=== PATIENT | male | born 1930 | race Caucasian/White ===

== ENCOUNTER 2016-05-16 08:48 | Emergency (ER) | payer OTHER, MEDICARE ==
[~2016-05-16] VITALS: Ht 179.1 cm; Wt 75.8 kg
[~2016-05-16 08:48] MED LIST: ASPEC81 PO; AVD5 PO; BIOTCAP2 PO; BUDE180I INH; CALC200T PO; CHOL400T5 PO; DIAZ2TAB PO; DICL-201 PO; DOXY100C76 PO; FLNIN NAE; METH4PAK4 PO; PSYL55.43 PO; SRVDIN60 INH; TERA1CAP63 PO; THEO400T PO; [UNRECOGNIZED DRUG - CODE] PO
[2016-05-16] MEDS ORDERED: SODIUM CHLORIDE 0.9% 250ML 250 ML IV STA (09:02)
[2016-05-16] MEDS ORDERED: SODIUM CHLORIDE 0.9% 1000ML 1,000 ML IV STA (09:02)
[2016-05-16 09:03] VITALS: TEMP 36.8; O2SAT 98; Ht 179.1 cm; Wt 75.8 kg
--- NOTE | 2016-05-16 09:09 | EMERGENCY ROOM VISIT NOTE ---
History Report prepared by Scribe: Chloe Vuong Under the Supervision of: Dr. Cristela Odell M.D. First contact with patient: 08:53 Chief Complaint: SYNCOPE (NEAR SYNCOPE) Stated Complaint: FALL History of Present Illness The patient is an 85 year old male who presents to the Emergency Room with complaints of an episode of near syncope that occurred prior to arrival. He was brought to the ED via EMS. He reports he began to feel dizzy shortly after getting up this morning, so his called an ambulance and told him not to move. He denies any current shortness of breath or headache. He denies any recent illnesses or injuries. He does not think he hit his head at all during the episode. The patient does admit to pain in the back of his neck that is worsened by movement. His last bowel movement was this morning and normal. Source of History: patient Onset: this morning Position: other (global) Timing: resolved Associated Symptoms: + neck pain, No LOC, No SOB, No headache Review of Systems See HPI for pertinent positives & negatives. A total of 10 systems reviewed and were otherwise negative. 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 (6) Incarcerated femoral hernia (7) Spinal stenosis of lumbar region Family History FH: lung cancer MOTHER FH: myocardial infarction FATHER Social History Smoking Status: Never Smoker Drug Use: none Marital Status: Housing Status: lives with family, lives with significant other Occupation Status: retired Current/Historical Medications Scheduled Aspirin (Aspirin), 1 TAB PO HS Biotin (Biotin 5000), 1 CAP PO QAM Calcium Carbonate-Vitamin D (Oscal 500/200 D-3), 1 TAB PO QAM Cholecalciferol (Vitamin D), 2 TAB PO QAM Dutasteride (Dutasteride), 1 CAP PO HS Terazosin Hcl (Hytrin), 10 MG PO HS Miscellaneous Medications Albuterol Sulfate (Proair Respiclick), 1-2 PUFFS INH Allergies Coded Allergies: Ciprofloxacin (Verified Allergy, Unknown, unknown, 05/16/16) Physical Exam Vital Signs Date Time Temp Pulse Resp B/P Pulse Ox O2 Delivery O2 Flow Rate FiO2 05/16/16 15:12 74 20 94/55 93 05/16/16 14:12 56 18 100/58 97 Room Air 05/16/16 12:11 59 20 115/67 92 Room Air 05/16/16 10:49 57 18 127/75 96 Room Air 05/16/16 10:41 54 05/16/16 10:01 63 18 123/63 95 Room Air 05/16/16 09:16 60 102/56 68 97/45 72 95/54 05/16/16 09:03 36.8 84 20 111/58 98 Room Air 05/16/16 09:03 98 Room Air Physical Exam Vital signs reviewed. General: Elderly, well-appearing 85 year old male, in no significant distress. HEENT: No scleral icterus, PERRLA, neck supple. Atraumatic. Cardiovascular: Regular rate and rhythm, no extra sounds. Pulmonary: Clear to auscultation bilaterally, normal work of breathing. Abdomen: Soft, nontender, nondistended, positive bowel sounds. Musculoskeletal: Erythema to bilateral knees, mild abrasion to left knee, no peripheral edema. Neurologic: Patient awake alert and oriented x 3, full strength in all 4 extremities. Cranial nerves 2 through 12 grossly intact. Cerebellar exam is intact. Skin: Warm, dry, no rash Medical Decision & Procedures ER Provider Diagnostic Interpretation: This X-Ray was reviewed and interpreted by myself and the radiologist. CHEST ONE VIEW PORTABLE IMPRESSION: No acute cardiopulmonary findings. Electronically signed by: Rivera Palmer M.D. 05/16/2016 9:[address] scan was reviewed and interpreted by the radiologist and reviewed by myself. CT OF THE HEAD WITHOUT CONTRAST IMPRESSION: No acute intracranial findings. Electronically signed by: Rivera Palmer M.D. 05/16/2016 9:51 AM Laboratory Results 05/16/16 08:45 Red Blood Count 4.56, Mean Corpuscular Volume 91.2, Mean Corpuscular Hemoglobin 30.7, Mean Corpuscular Hemoglobin Concent 33.7, Mean Platelet Volume 9.3, Neutrophils (%) (Auto) 74.1, Lymphocytes (%) (Auto) 16.7, Monocytes (%) (Auto) 6.8, Eosinophils (%) (Auto) 1.8, Basophils (%) (Auto) 0.4, Neutrophils # (Auto) 7.20, Lymphocytes # (Auto) 1.62, Monocytes # (Auto) 0.66, Eosinophils # (Auto) 0.17, Basophils # (Auto) 0.04 05/16/16 08:45 Test 05/16/16 08:45 05/16/16 09:14 05/16/16 12:25 White Blood Count 9.71 K/uL (4.8-10.8) Red Blood Count 4.56 M/uL (4.7-6.1) Hemoglobin 14.0 g/dL (14.0-18.0) Hematocrit 41.6 % (42-52) Mean Corpuscular Volume 91.2 fL (80-100) Mean Corpuscular Hemoglobin 30.7 pg (25-34) Mean Corpuscular Hemoglobin Concent 33.7 g/dl (32-36) Platelet Count 184 K/uL (130-400) Mean Platelet Volume 9.3 fL (7.4-10.4) Neutrophils (%) (Auto) 74.1 % Lymphocytes (%) (Auto) 16.7 % Monocytes (%) (Auto) 6.8 % Eosinophils (%) (Auto) 1.8 % Basophils (%) (Auto) 0.4 % Neutrophils # (Auto) 7.20 K/uL (1.4-6.5) Lymphocytes # (Auto) 1.62 K/uL (1.2-3.4) Monocytes # (Auto) 0.66 K/uL (0.11-0.59) Eosinophils # (Auto) 0.17 K/uL (0-0.5) Basophils # (Auto) 0.04 K/uL (0-0.2) RDW Standard Deviation 47.4 fL (36.4-46.3) RDW Coefficient of Variation 14.1 % (11.5-14.5) Immature Granulocyte % (Auto) 0.2 % Immature Granulocyte # (Auto) 0.02 K/uL (0.00-0.02) Anion Gap 8.0 mmol/L (3-11) Est Creatinine Clear Calc Drug Dose 59.3 ml/min Estimated GFR () 86.4 Estimated GFR (Non- 74.5 BUN/Creatinine Ratio 16.7 (10-20) Calcium Level 8.6 mg/dl (8.5-10.1) Magnesium Level 2.2 mg/dl (1.8-2.4) Total Bilirubin 0.6 mg/dl (0.2-1) Direct Bilirubin 0.1 mg/dl (0-0.2) Aspartate Amino Transf (AST/SGOT) 20 U/L (15-37) Alanine Aminotransferase (ALT/SGPT) 20 U/L (12-78) Alkaline Phosphatase 62 U/L (45-117) Total Creatine Kinase 138 U/L (39-308) Creatine Kinase MB 3.9 ng/ml (0.5-3.6) Creatine Kinase MB Ratio 2.8 (0-3.0) Total Protein 6.2 gm/dl (6.4-8.2) Albumin 3.4 gm/dl (3.4-5.0) Bedside Troponin I 0.000 ng/ml (0-0.045) Urine Color YELLOW Urine Appearance CLEAR (CLEAR) Urine pH 7.5 (4.5-7.5) Urine Specific [place] 1.017 (1.000-1.030) Urine Protein NEG (NEG) Urine Glucose (UA) NEG (NEG) Urine Ketones TRACE (NEG) Urine Occult Blood NEG (NEG) Urine Nitrite NEG (NEG) Urine Bilirubin NEG (NEG) Urine Urobilinogen NEG (NEG) Urine Leukocyte Esterase NEG (NEG) Laboratory results per my review. Medications Administered Medications (Trade) Dose Ordered Sig/Low Route Start Time Stop Time Status Last Admin Dose Admin Sodium Chloride 250 ml @ 999 mls/hr Q16M STAT IV 05/16/16 09:02 05/16/16 09:17 DC 05/16/16 09:56 999 MLS/HR Sodium Chloride (Nss 1000ml) 1,000 ml @ 125 mls/hr Q8H STAT IV 05/16/16 09:02 05/16/16 15:27 DC 05/16/16 09:55 125 MLS/HR Meclizine HCl (Antivert Tab) 25 mg NOW STAT PO 05/16/16 11:07 05/16/16 11:09 DC 05/16/16 11:23 25 MG ECG Indication: syncope Rate (beats per minute): 67 Rhythm: sinus rhythm Findings: LAFB, PVC, prolonged QT (QTC is 464 milliseconds) ED Course 09: Past medical records reviewed. The patient was evaluated in room B7. A complete history and physical examination was performed. 0902: NSS 1000 ml @ 125 mls/hr IV, NSS 250 ml @ 999 mls/hr IV. 1105: Nursing informed me the patient was able to walk with a walker. He is still feeling dizzy so I will administer more medication. 1107: Meclizine 25 mg PO. 1421: I reevaluated the patient. He is feeling better. I discussed his results and discharge instructions and he verbalized complete understanding and agreement. Medical Decision DDx: Etiologies such as vasovagal event, infection, hypoglycemia, electrolyte abnormalities, cardiac sources, intracerebral event, toxicologic, neurologic, as well as others were entertained. This patient was evaluated and appeared to be in no significant distress. IV access was obtained and laboratory work was drawn. The patient was placed on the cardiac cath rn and found to be in a sinus rhythm. Patient's cardiac enzymes are negative, laboratory work is unrevealing. Patient does not appear to be orthostatic however does have a mildly hypotensive blood pressure upon sitting and standing. His baseline blood pressure was approximately 100 systolic on arrival. The patient had significant improvement in his blood pressure with gentle IV hydration. His BUN and creatinine are normal. He did complain of some "spinning" planned in a trial however was steady with a walker. He was given meclizine 25 mg orally with good relief. Head CT was performed and is negative. Chest x-ray is negative. He was able to tolerate a meal tray. The patient has been taking 10 mg of Hytrin daily for prostatic hypertrophy. His states she has been thinking he should discontinue this medication due to his recurrent dizziness. I offered to prescribe a lower dose however he felt more comfortable discontinuing the medication until he is reevaluated by his primary care physician this week. The patient was discharged to the care of his and told to return to the ER immediately for worsening of symptoms or any medical concerns. Impression Primary Impression: Hypotension Additional Impressions: Adverse reaction to drug Dizziness Scribe Attestation The scribe's documentation has been prepared under my direction and personally reviewed by me in its entirety. I confirm that the note above accurately reflects all work, treatment, procedures, and medical decision making performed by me. Departure Information Dispostion Home / Self-Care Referrals Aldo Chavez M.D. (PCP) Patient Instructions My [facility] Additional Instructions Diagnosis: Hypotension, dizziness Please discontinue your Hytrin. Drink plenty of clear fluids. Use caution when changing position. Follow-up with your physician this week for reevaluation. Return to the ER for worsening of symptoms or any medical concerns. Problem Qualifiers
[2016-05-16 09:12] LABS: BASO % 0.4 %; BASO ABS # 0.04 K/uL (0-0.2); COMPLETE YES; EOS % 1.8 %; HEMATOCRIT 41.6 % (42-52); IG% 0.2 %; LYMPH % 16.7 %; LYMPH ABS # 1.62 K/uL (1.2-3.4); MEAN CELL VOLUME 91.2 fL (80-100); MEAN CORPUSCULAR HEMOGLOBIN 30.7 pg (25-34); MEAN CORPUSCULAR HGB CONC 33.7 g/dl (32-36); MEAN PLATELET VOLUME 9.3 fL (7.4-10.4); MONO % 6.8 %; NEUT % 74.1 %; PLATELET COUNT 184 K/uL (130-400); RED BLOOD COUNT 4.56 M/uL (4.7-6.1); WHITE BLOOD COUNT 9.71 K/uL (4.8-10.8)
[2016-05-16 09:25] LABS: BUN/CREATININE RATIO 16.7 (10-20); CALCIUM 8.6 mg/dl (8.5-10.1); CREATININE 0.92 mg/dl (0.60-1.40); MAGNESIUM 2.2 mg/dl (1.8-2.4); POTASSIUM 4.1 mmol/L (3.5-5.1)
--- NOTE | 2016-05-16 09:26 | DIAGNOSTIC IMAGING REPORT ---
CHEST ONE VIEW PORTABLE CLINICAL HISTORY: Weakness. Dizziness. COMPARISON STUDY: Chest radiograph November 29, 2014. FINDINGS: Lung volumes are normal. There is no consolidation. There is no evidence of pulmonary edema. Cardiomediastinal silhouette is stable. Mild left basilar opacity favors atelectasis. IMPRESSION: No acute cardiopulmonary findings. Electronically signed by: Rivera Palmer M.D. 05/16/2016 9:24 AM Dictated Date/Time: 05/16/2016 9:19 AM
[2016-05-16 09:29] LABS: CKMB/CK RATIO 2.8 (0-3.0)
--- NOTE | 2016-05-16 09:52 | DIAGNOSTIC IMAGING REPORT ---
CT OF THE HEAD WITHOUT CONTRAST CLINICAL HISTORY: Dizzy. Weakness. COMPARISON STUDY: MRI of the brain October 10, 2014. CT DOSE: 614.27 mGy.cm TECHNIQUE: Helical axial images of the head were obtained without IV contrast. Automated exposure control was utilized for the study. FINDINGS: No acute intracranial hemorrhage, midline shift or mass effect is present. Ventricular system is stable. Basilar cisterns are patent. There are no extra-axial collections. Mild white matter hypodensity suggests small vessel disease. There are no findings to suggest acute dural sinus thrombosis or acute territorial infarct. There is no calvarial fracture. A left maxillary sinus mucous retention cyst is noted. There is no fluid within the mastoid air cells. IMPRESSION: No acute intracranial findings. Electronically signed by: Rivera Palmer M.D. 05/16/2016 9:51 AM Dictated Date/Time: 05/16/2016 9:48 AM
[2016-05-16] MEDS ORDERED: ALBU18002 INH (10:43)
[2016-05-16] MEDS ORDERED: DUTA1CAP3 PO (10:43)
[2016-05-16] MEDS ORDERED: ASPI1TAB83 PO (10:43)
[2016-05-16] MEDS ORDERED: MECLIZINE HCL 25 MG TAB PO STA (11:07)
[2016-05-16 12:43] LABS: URINE APPEARANCE CLEAR (CLEAR); URINE BILIRUBIN NEG (NEG); URINE COLOR YELLOW; URINE NITRITE NEG (NEG); URINE PH 7.5 (4.5-7.5); URINE SPECIFIC GRAVITY 1.017 (1.000-1.030); UROBILINOGEN NEG (NEG); ZZUR CULT IF INDIC CLEAN CATCH NO
[2016-05-16 12:45] LABS: MANUAL MICROSCOPIC REQUIRED? NO; REVIEW REQ? NO
[2016-05-16 15:12] VITALS: BP 94/55; PULSE 74; O2SAT 93
[2016-09-17] MEDS ORDERED: PSYL48.59 PO (14:29)
[2016-09-17] MEDS ORDERED: HYT/2 PO (14:29)
[2016-09-17] MEDS ORDERED: DUTA0.5C PO (14:29)
[2016-10-13] MEDS ORDERED: DIFL0.0519 (12:26)
[2016-10-13] MEDS ORDERED: BROM0.07 (12:26)
[2016-10-13] MEDS ORDERED: GENT0.3S6 OP (12:26)
== END 2016-05-16 15:05 | disposition home or self-care (01) ==
LOC: EDBD 08:48 → C.EDB 08:49
DX: I95.9 Hypotension, unspecified (principal); T44.6X5A Adverse effect of alpha-adrenoreceptor antagonists, initial encounter; R42 Dizziness and giddiness; N40.0 Benign prostatic hyperplasia without lower urinary tract symptoms; J45.909 Unspecified asthma, uncomplicated; F41.9 Anxiety disorder, unspecified; M48.06 Spinal stenosis, lumbar region; Z98.890 Other specified postprocedural states; Z79.82 Long term (current) use of aspirin; Z79.899 Other long term (current) drug therapy; Z88.2 Allergy status to sulfonamides; Z82.49 Family history of ischemic heart disease and other diseases of the circulatory system

== ENCOUNTER → 2016-10-13 | Day surgery (SDC) | payer OTHER, MEDICARE ==
[2016-09-17 14:33] VITALS: Ht 177.8 cm; Wt 72.7 kg
[~2016-10-13] VITALS: Ht 177.8 cm; Wt 72.7 kg
[~2016-10-13] MED LIST changes: +500ML BSS 0.3ML EPI 1:1000PF IRRIG ONE; +ACETAMINOPHEN 325 MG TAB PO PRN; +ALBU18002 INH; +AMVISC PLUS 0.8ML SYRINGE INT OCU ONE; -ASPEC81 PO; +ASPI1TAB83 PO; +ATROPINE SULFATE 0.1 MG/ML 5ML SYR IV PRN; -AVD5 PO; +BROM0.07; +BSS FLUSH ONE; -BUDE180I INH; -DIAZ2TAB PO; -DICL-201 PO; +DIFL0.0519; -DOXY100C76 PO; +DUTA0.5C PO; +EpHEDrine SULFATE INJ 50 MG/ML AMP IV PRN; +EpINEphrine INJ 1MG/ML AMP 1 MG/ML AMP ONE; -FLNIN NAE; +GENT0.3S6 OP; +HYT/2 PO; +LACTATED RINGER'S 1000ML 500 ML IV SCH; +LIDOCAINE 3.5% OPH GEL PER APPLICATION CHARGE ONE; +LIDOCAINE HCL 1% MPF 2 ML VIAL ONE; -METH4PAK4 PO; +MIDAZOLAM HCL 1 MG/ML 2ML VIAL ONE; +OCUCOAT 1 ML SOLN IO ONE; +POVIDONE-IODINE OP SOLN 30 ML BTL ONE; +PROPARACAINE 0.5% OP SOLN PER DROP CHARGE OPL SCH; +PSYL48.59 PO; -PSYL55.43 PO; -SRVDIN60 INH; -TERA1CAP63 PO; -THEO400T PO; +TOBRAMYCIN/DEXAMETHASONE OPH OINT PER APPLN CHARGE ONE; -[UNRECOGNIZED DRUG - CODE] PO
[2016-10-13] MEDS: PHENYLEPHRINE HCL 2.5% OP SOLN PER DROP CHARGE OPL SCH ×2 (12:24→12:31)
[2016-10-13] MEDS: TROPICAMIDE 1% OP SOLN PER DROP CHARGE OPL SCH ×2 (12:25→12:32)
[2016-10-13] MEDS: KETOROLAC 0.5% OP SOLN PER DROP CHARGE OPL SCH ×2 (12:27→12:33)
[2016-10-13] MEDS: CYCLOPENTOLATE HCL 1% OP SOLN PER DROP CHARGE OPL SCH ×2 (12:27→12:32)
[2016-10-13] MEDS: GATIFLOXACIN OP SOLN PER DROP CHARGE OPL SCH ×2 (12:28→12:39)
--- NOTE | 2016-10-13 12:37 | History & Physical Bridge - SC ---
H&P Re-Evaluation Bridge Note: I have examined the patient, reviewed the History & Physical and in the interval since the performance of the History & Physical I have noted the following changes of clinical significance: No changes noted
--- NOTE | 2016-10-13 13:08 | [facility] Operative Report ---
Operative Report Date of Service Oct 13, 2016. Operative Report 1. PREOPERATIVE DIAGNOSIS: Cataract of the left eye. 2. POSTOPERATIVE DIAGNOSIS: Same. 3. PROCEDURE: Phacoemulsification with intraocular lens implantation of the left eye. SURGEON: Dr. Selvin Serarno. ANESTHESIA: Topical Lidocaine gel, 1% Non- Preserved intracameral Lidocaine, and monitored intravenous sedation. INDICATIONS FOR THE PROCEDURE: The patient is a 86 - year-old male with a history of cataract of the left eye causing significant visual impairment. The details of the proposed procedure were explained to the patient who asked appropriate questions and following discussion of all risks, benefits and alternatives agreed to have the procedure done. 4. OPERATION AND FINDINGS: DESCRIPTION OF PROCEDURE: After informed consent was obtained, the patient was brought to the Operating Room at the [facility]. The patient was placed in a supine position and then the left eye was prepped and draped in the usual sterile fashion for intraocular surgery. A drop of topical Lidocaine gel was placed in the operative eye. A wire lid speculum was then placed in the fornices. A corneal paracentesis was then created temporally. The Non-Preserved Lidocaine was then instilled into the anterior chamber. The anterior chamber was then pressurized with viscoelastic. A 2.0 mm clear corneal incision was then created temporally. A cystotome was inserted into the anterior chamber and used to create a tear in the anterior lens capsule. This capsular tear was then used to create a small flap and the flap was dragged in a counterclockwise direction in order to create a continuous curvilinear capsulorrhexis. Hydrodissection was accomplished with balanced salt solution. Phacoemulsification of the lens nucleus was then performed in a standard [id number] technique. The phaco time was 40 seconds with an average power of 15 %. The remaining cortical material was removed using irrigation aspiration. The capsular bag was then filled with viscoelastic. A [employer] Lomb MI60L +17.0 diopters lens was then loaded into the injector and injected into the capsular bag. The remaining viscoelastic was removed with the irrigation aspiration handpiece. The wound was hydrated and then checked and found to be watertight. The intraocular pressure was checked and found to be adequate. The wire lid speculum was removed and the patient's face was cleaned and dried. TobraDex ointment was placed in the inferior fornix. The patient was discharged to the Recovery Room having tolerated the procedure well. There were no complications. The patient will be seen tomorrow in the office for follow-up. I attest to the content of the Intraoperative Record and any orders documented therein. Any exceptions are noted below.
--- NOTE | 2016-10-13 13:08 | Discharge Instructions-SurgCtr ---
Discharge Instructions Date of Service Oct 13, 2016. Visit Reason for Visit: Left Cataract Discharge Discharge Diagnosis / Problem: cataract Discharge Goals Goal(s): Improve function Activity Recommendations Activity Limitations: per Instructions/Follow-up section Anesthesia . Post Anesthesia Instructions: If you have had General Anesthesia or IV Sedation: * Do not drive today. * Resume driving when surgeon permits. * Do not make important decisions or sign legal documents today. * Call surgeon for: 1. Temperature elevations greater than 101 degrees F. 2. Uncontrollable pain. 3. Excessive bleeding. 4. Persistent nausea and vomiting. 5. Medication intolerance (nausea, vomiting or rash). * For nausea and vomiting use only clear liquids such as: tea, soda, bouillon until nausea subsides, then gradually increase diet as tolerated. * If you have any concerns or questions, call your surgeon's office. If physician is unavailable and it is an emergency, call 911 or go to the nearest emergency room. . Instructions / Follow-Up Instructions / Follow-Up ACTIVITY RECOMMENDATIONS: * No strenuous lifting, jogging or running for 4 days * No swimming or yard work for 1 week. * Limited bending is permitted, such as putting on shoes. RETURN TO SCHOOL/WORK: No work until seen by physician in office. MEDICATIONS: Resume previous medications unless instructed otherwise by your surgeon. This includes eye drops for glaucoma. Zymaxid/Gatifloxacin (de [place]z cap) - one drop every 2 hours until bedtime Nevanac/Ilevro/Prolensa/Ketorolac (se[place]ia cap) - one drop every 4 hours until bedtime Prednisolone/Durezol (white/pink cap, SHAKE WELL) - one drop every 2 hours until bedtime Starting tomorrow - all 3 drops every 4 hours until seen in the office Optive drops - as needed for discomfort SPECIAL CARE INSTRUCTIONS: * Wear eyeshield when sleeping, for four nights. * You may wear your own glasses or sunglasses while awake. * You may read or watch TV * You may shower and wash your face, but be gentle around the eye and pat dry. * Blurry vision and mild irritation are normal. * Call office if pain is more severe or vision becomes dark at . FOLLOW UP VISIT: Follow-up with Dr Serrano tomorrow. Diet Recommendations Home Diet: resume previous diet Procedures Procedures Performed: Left Cataract Phacoemulsification With Intraocular Lens implant Pending Studies Studies pending at discharge: no Medical Emergencies . Who to Call and When: Medical Emergencies: If at any time you feel your situation is an emergency, please call 911 immediately. . Non-Emergent Contact Non-Emergency issues call your: Child Care Assistant . . "Provider Documentation" section prepared by Selvin Serrano. .
[2016-10-13 13:09] VITALS: TEMP 36.5
--- NOTE | 2016-10-13 13:21 | Anesthesia Progress Nt - [facility] ---
Anesthesia Post Op Note Date & Time Oct 13, 2016 at 13:21 Vital Signs Pain Intensity: 0 Vital Signs Past 12 Hours Date Time Temp Pulse Resp B/P (MAP) Pulse Ox O2 Delivery O2 Flow Rate FiO2 10/13/16 13:09 36.5 59 16 136/77 (96) 95 Room Air 10/13/16 12:06 36.7 71 22 165/105 (125) 98 Room Air Notes Mental Status: alert / awake / arousable, participated in evaluation Pt Amnestic to Procedure: Yes Nausea / Vomiting: adequately controlled Pain: adequately controlled Airway Patency, RR, SpO2: stable & adequate BP & HR: stable & adequate Hydration State: stable & adequate Anesthetic Complications: no major complications apparent
[2016-10-13 13:32] VITALS: BP 127/72; PULSE 44; O2SAT 98
== END | disposition home or self-care (01) ==
LOC: X.SURG 11:36
PROVIDERS: ATTEND Ophthalmology
DX: H26.9 Unspecified cataract (principal); J45.909 Unspecified asthma, uncomplicated; F03.90 Unspecified dementia, unspecified severity, without behavioral disturbance, psychotic disturbance, mood disturbance, and anxiety; M19.90 Unspecified osteoarthritis, unspecified site; N40.1 Benign prostatic hyperplasia with lower urinary tract symptoms; R42 Dizziness and giddiness

== ENCOUNTER → 2016-11-30 | Outpatient (CLI) | payer OTHER, MEDICARE ==
[~2016-11-30] MED LIST changes: -500ML BSS 0.3ML EPI 1:1000PF IRRIG ONE; -ACETAMINOPHEN 325 MG TAB PO PRN; -AMVISC PLUS 0.8ML SYRINGE INT OCU ONE; -ATROPINE SULFATE 0.1 MG/ML 5ML SYR IV PRN; -BSS FLUSH ONE; -EpHEDrine SULFATE INJ 50 MG/ML AMP IV PRN; -EpINEphrine INJ 1MG/ML AMP 1 MG/ML AMP ONE; -LACTATED RINGER'S 1000ML 500 ML IV SCH; -LIDOCAINE 3.5% OPH GEL PER APPLICATION CHARGE ONE; -LIDOCAINE HCL 1% MPF 2 ML VIAL ONE; -MIDAZOLAM HCL 1 MG/ML 2ML VIAL ONE; -OCUCOAT 1 ML SOLN IO ONE; -POVIDONE-IODINE OP SOLN 30 ML BTL ONE; -PROPARACAINE 0.5% OP SOLN PER DROP CHARGE OPL SCH; -TOBRAMYCIN/DEXAMETHASONE OPH OINT PER APPLN CHARGE ONE
[2016-11-30 16:53] LABS: BASO % 0.6 %; BASO ABS # 0.04 K/uL (0-0.2); COMPLETE YES; EOS % 2.2 %; HEMATOCRIT 46.6 % (42-52); IG% 0.2 %; LYMPH % 28.2 %; LYMPH ABS # 1.78 K/uL (1.2-3.4); MEAN CELL VOLUME 92.8 fL (80-100); MEAN CORPUSCULAR HEMOGLOBIN 30.3 pg (25-34); MEAN CORPUSCULAR HGB CONC 32.6 g/dl (32-36); MEAN PLATELET VOLUME 9.1 fL (7.4-10.4); MONO % 8.7 %; NEUT % 60.1 %; PLATELET COUNT 206 K/uL (130-400); RED BLOOD COUNT 5.02 M/uL (4.7-6.1); WHITE BLOOD COUNT 6.31 K/uL (4.8-10.8)
[2016-11-30 17:20] LABS: BLOOD UREA NITROGEN 14 mg/dl (7-18); BUN/CREATININE RATIO 18.6 (10-20); CALCIUM 8.6 mg/dl (8.5-10.1); CARBON DIOXIDE 29 mmol/L (21-32); CHLORIDE 107 mmol/L (98-107); CREATININE 0.74 mg/dl (0.60-1.40); GLUCOSE 87 mg/dl (70-99); POTASSIUM 4.2 mmol/L (3.5-5.1); SODIUM 142 mmol/L (136-145)
== END | disposition home or self-care (01) ==
LOC: C.LAB1850 15:46
PROVIDERS: ATTEND Internal Medicine
DX: M19.90 Unspecified osteoarthritis, unspecified site (principal)

== ENCOUNTER → 2017-09-09 | Outpatient (CLI) | payer OTHER, MEDICARE | END | disposition home or self-care (01) | LOC: C.LAB1850 15:38 | PROVIDERS: ATTEND Urology | DX: N40.0 Benign prostatic hyperplasia without lower urinary tract symptoms (principal) ==